=== PATIENT | male | born 1960 | race Caucasian/White ===

== ENCOUNTER → 2018-02-17 | Outpatient (CLI) | payer MEDICARE ==
--- NOTE | 2018-02-17 10:16 | US ---
EXAMINATION TYPE: US thyroid st tissue head/neck DATE OF EXAM: 02/17/2018 COMPARISON: NONE CLINICAL HISTORY: E04.1 NON TOXIC SINGLE THYROID NODULE. Patient states doctor felt lump. On thyroid medications. No previous thyroid ultrasound. GLAND SIZE: Right Lobe: 4.6 x 1.5 x 1.7 cm Overall Parenchyma: heterogenous Left Lobe: 4.2 x 1.5 x 1.6 Overall Parenchyma: heterogeneous Isthmus Thickness: 0.3m NODULES RIGHT: # of nodules measured on right: 0 LEFT: # of nodules measured on left: 0 ISTHMUS: # of nodules measured in the isthmus: 0 Bilateral neck scanned, no evidence of lymphadenopathy. IMPRESSION: Correlate for thyroiditis.
== END | disposition home or self-care (01) ==
LOC: LABWHC1 08:50
PROVIDERS: ATTEND Internal Medicine
DX: E04.1 Nontoxic single thyroid nodule (principal); E03.9 Hypothyroidism, unspecified
CPT/HCPCS: 36415; 76536; 84443